=== PATIENT | male | born 1995 | race Caucasian/White ===

== ENCOUNTER 2021-08-13 22:13 | Emergency (ER) | payer OTHER, SELFPAY ==
[2021-08-13 22:14] VITALS: BP 164/101; PULSE 85; RESP 16; O2SAT 99; BMI 24.4
--- NOTE | 2021-08-13 22:28 | W.ED.PSYCHS ---
HPI - Psych General: Chief Complaint: Psychiatric Symptoms Stated Complaint: MHE Time Seen by Provider: 08/13/21 22:13 Source: patient and EMS Mode of arrival: EMS Limitations: no limitations History of Present Illness: HPI Narrative: 26-year-old male who is here by EMS family called EMS as he is becoming delusional. Patient here is very paranoid and delusional he is telling me that he is lying tricks how to make tons of money and can hear speech about invest he states that he hears voices when he walks his sock tank he notices all the secrets to make tons of money he is very anxious and has very loose associations here. He states he does use marijuana no other drug use Associated symptoms: Reports auditory hallucinations and delusions Review of Systems Const: Denies: fever(s), chills, body aches or change in appetite Eyes: Denies: blurry vision or eye discomfort ENMT: Denies: throat pain or dental pain Card: Denies: chest pain Resp: Denies: dyspnea GI: Denies: abdominal pain, nausea, vomiting or diarrhea : Denies: dysuria Musc: Denies: neck pain or back pain Skin/Breast: Denies: rash Neuro: Denies: headache(s) Psych: Reports: paranoia and auditory hallucinations Ilya/Lymph: Denies: easy bruising All/Imm: Denies: urticaria Physical Exam Const: COMMON NORMALS: no acute distress, patient oriented x3 and healthy appearing HENMT: COMMON NORMALS: normocephalic and atraumatic HEAD & SCALP: normocephalic and atraumatic Eye: COMMON NORMALS: Equal, round and reactive pupils present and EOMs intact bilaterally PUPIL: Yes Equal, round and reactive pupils present Neck/C-Spine: COMMON NORMALS: full ROM and supple Chest: COMMONS NORMALS: normal inspection of the chest and normal palpation of entire chest wall Resp: COMMON NORMALS: normal respiratory effort, No retractions, No use of accessory muscles and clear to auscultation bilaterally AUSCULTATION: clear to auscultation bilaterally Cardio: COMMON NORMALS: regular rate, regular rhythm and No murmurs present (Cardio) RATE: regular rate RHYTHM: regular rhythm GI: COMMON NORMALS: Normal to inspection, nondistended, normoactive bowel sounds present, Soft to palpation, non-tender and no masses PALPATION: Yes Soft to palpation Extremity: COMMON NORMALS: normal to inspection and full ROM Neuro: COMMON NORMALS: patient oriented x3, moves all extremities and no focal motor deficits Psych: COMMON NORMALS: mental status grossly normal and cooperative THOUGHT PROCESS: Flight of ideas present and Loose association thought process present THOUGHT CONTENT: Yes delusions and Yes Hallucination(s) present Skin: COMMON NORMALS: no rashes or lesions noted and no wounds GENERAL SKIN EXAM: no rashes or lesions noted Course Vital Signs: Vital signs: Vital Signs Pulse Rate 85 08/13/21 22:14 Respiratory Rate 16 08/13/21 22:14 Blood Pressure 120/69 08/14/21 03:26 Pulse Oximetry 99 08/13/21 22:14 MDM - Psych MDM Narrative: Medical decision making narrative: Patient presents here with acute psychosis possible new onset schizophrenia no drug abuse besides marijuana patient is medically cleared patient placed on a 96-hour hold and excepted to [place] and will transfer there. Lab Data: Labs: Lab Results 08/13/21 08/13/21 08/13/21 22:34 22:34 22:41 WBC 12.0 10^3/uL H 10 ^3/uL (4.0-10.0) RBC 5.70 10^6/uL H 10 ^6/uL (4.1-5.3) Hgb 17.3 g/dL H g/dL (11.7-16.6) Hct 50.9 % % (42.0-52.0) MCV 89.3 fl fl (80-94) MCH 30.4 pg pg (28.0-34.0) MCHC 34.0 g/dL g/dL (30.0-36.0) RDW 12.1 % % (12.1-15.1) Plt Count 317 10^3/cmm 10^3 /cmm (130-400) MPV 9.4 fL fL (7.4-10.4) Neut % (Auto) 63.3 % % Lymph % (Auto) 28.8 % % [place] % (Auto) 6.4 % % Eos % (Auto) 0.8 % % Baso % (Auto) 0.4 % % Neut # (Auto) 7.57 10^3/uL 10^3 /uL (1.8-7.7) Lymph # (Auto) 3.4 10^3/uL 10^3/ uL (0.8-4.8) [place] # (Auto) 0.8 10^3/uL 10^3/ uL (0.2-0.9) Eos # (Auto) 0.1 10^3/uL 10^3/ uL (0.0-0.8) Baso # (Auto) 0.1 10^3/uL 10^3/ uL (0.0-0.1) Nucleated RBC % (a uto) 0 % % Nucleated RBCs # 0.0 /100WBC /100W BC Sodium Potassium Chloride Carbon Dioxide Anion Gap BUN Creatinine GFR Calculation Glucose Calculated Osmolal ity Calcium Total Bilirubin AST ALT Alkaline Phosphata se Total Protein Albumin Globulin Urine Color Yellow (Yellow) Urine Appearance Clear (CLEAR) Urine pH 6.5 (5-7) Ur Specific Gravit y 1.010 (1.005-1.030) Urine Protein Neg (Negative) Urine Glucose (UA) Norm (Normal) Urine Ketones Negative (Negative) Urine Blood Neg (Negative) Urine Nitrate Negative (Negative) Urine Bilirubin Neg (Negative) Urine Urobilinogen Norm mg/dL mg/dL (Negative) Ur Leukocyte Lyla ase Negative (Negative) Salicylates Urine Opiates Scre en Negative ng/mL ng /mL (Negative) Acetaminophen Ur Barbiturates Sc reen Negative ng/mL ng /mL (Negative) Ur Phencyclidine S crn Negative ng/mL ng /mL (Negative) Ur Amphetamines Sc reen Negative ng/mL ng /mL (Negative) U Benzodiazepines Scrn Negative ng/mL ng /mL (Negative) Urine Cocaine Scre en Negative ng/mL ng /mL (Negative) U Marijuana (THC) Screen Positive ng/mL H ng/mL (Negative) Ethyl Alcohol SARS-CoV-2 Ag (Rap id) 08/13/21 08/14/21 22:41 02:13 WBC RBC Hgb Hct MCV MCH MCHC RDW Plt Count MPV Neut % (Auto) Lymph % (Auto) [place] % (Auto) Eos % (Auto) Baso % (Auto) Neut # (Auto) Lymph # (Auto) [place] # (Auto) Eos # (Auto) Baso # (Auto) Nucleated RBC % (a uto) Nucleated RBCs # Sodium 140 mmol/L mmol/L (136-145) Potassium 4.2 mmol/L mmol/L (3.5-5.1) Chloride 100 mmol/L mmol/L (98-107) Carbon Dioxide 28 mmol/L mmol/L (22-29) Anion Gap 16.2 (5-19) BUN 9 mg/dL mg/dL (6-20) Creatinine 0.7 mg/dL mg/dL (0.7-1.2) GFR Calculation 134.3 mL/min H mL /min (90-130) Glucose 104 mg/dL mg/dL (65-115) Calculated Osmolal ity 289 mOsm/kg mOsm/ kg (285-295) Calcium 9.7 mg/dL mg/dL (8.5-10.5) Total Bilirubin 0.4 mg/dL mg/dL (0.15-1.2) AST 15 U/L U/L (0-40) ALT 15 U/L U/L (0-41) Alkaline Phosphata se 60 IU/L IU/L (40-130) Total Protein 8.2 g/dL g/dL (6.6-8.7) Albumin 4.8 g/dL g/dL (3.5-5.2) Globulin 3.4 g/dL g/dL (1.3-4.6) Urine Color Urine Appearance Urine pH Ur Specific Gravit y Urine Protein Urine Glucose (UA) Urine Ketones Urine Blood Urine Nitrate Urine Bilirubin Urine Urobilinogen Ur Leukocyte Lyla ase Salicylates < 0.3 mg/dL L mg/ dL (3-10) Urine Opiates Scre en Acetaminophen < 5.0 ug/mL L ug/ mL (10-30) Ur Barbiturates Sc reen Ur Phencyclidine S crn Ur Amphetamines Sc reen U Benzodiazepines Scrn Urine Cocaine Scre en U Marijuana (THC) Screen Ethyl Alcohol < 10 mg/dL mg/dL (0-10) SARS-CoV-2 Ag (Rap id) Negative (Negative) Coding Level of Care Code ED Senior Market Research Analyst for Chg Fwd Exam Comprehensive
[2021-08-13 22:55] LABS: Basophils # 0.1 10^3/uL (0.0-0.1); Basophils % 0.4 %; Eosinophils # 0.1 10^3/uL (0.0-0.8); Eosinophils % 0.8 %; Hematocrit 50.9 % (42.0-52.0); Hemoglobin 17.3 g/dL (11.7-16.6); Lymphocytes # 3.4 10^3/uL (0.8-4.8); Lymphocytes % 28.8 %; Mean Corpuscular Hemoglobin 30.4 pg (28.0-34.0); Mean Corpuscular Volume 89.3 fl (80-94); Mean Platelet Volume 9.4 fL (7.4-10.4); Monocytes # 0.8 10^3/uL (0.2-0.9); Monocytes % 6.4 %; Neutrophils # 7.57 10^3/uL (1.8-7.7); Neutrophils % 63.3 %; Nucleated Red Blood Cells % 0 %; Platelet Count 317 10^3/cmm (130-400); Red Cell Distribution Width 12.1 % (12.1-15.1)
[2021-08-13 22:59] LABS: Amphetamines Screen Urine Negative (Negative); Barbiturates Screen Urine Negative (Negative); Benzodiazepines Screen Urine Negative (Negative); Cocaine Screen Urine Negative (Negative); Opiate Screen Urine Negative (Negative); PCP Screen Urine Negative (Negative); THC Screen Urine Positive (Negative)
[2021-08-13 23:21] LABS: Alanine Aminotransferase 15 U/L (0-41); Albumin Level 4.8 g/dL (3.5-5.2); Alkaline Phosphatase 60 IU/L (40-130); Anion Gap 16.2 (5-19); Aspartate Amino Transferase 15 U/L (0-40); Blood Urea Nitrogen 9 mg/dL (6-20); Calcium 9.7 mg/dL (8.5-10.5); Carbon Dioxide 28 mmol/L (22-29); Chloride 100 mmol/L (98-107); Globulin 3.4 g/dL (1.3-4.6); Glomerular Filtration Rate 134.3 mL/min (90-130); Glucose 104 mg/dL (65-115); Osmolality Calculated 289 mOsm/kg (285-295); Potassium 4.2 mmol/L (3.5-5.1); Sodium 140 mmol/L (136-145); Total Bilirubin 0.4 mg/dL (0.15-1.2); Total Protein 8.2 g/dL (6.6-8.7)
[2021-08-13 23:31] LABS: Acetaminophen < 5.0 ug/mL (10-30); Alcohol Level < 10 mg/dL (0-10); Salicylate < 0.3 mg/dL (3-10)
--- NOTE | 2021-08-13 23:48 | PC.NURSE ---
this nurse called pt mother to get background on pt. mother states he went to her house after his fiance radha told her he was acting strangely for a little over a week.
[2021-08-14 02:17] LABS: Add Urine Microscopic? NO; Charge for UA Resulting for Rev
[2021-08-14 02:18] LABS: Bilirubin Urine Neg (Negative); Blood Urine Neg (Negative); Glucose Urine UA Norm (Normal); Ketones Urine Negative (Negative); Leukocyte Esterase Urine Negative (Negative); Nitrate Urine Negative (Negative); Protein Urine Neg (Negative); Urine Appearance Clear (CLEAR); Urine Color Yellow (Yellow); Urobilinogen Urine Norm (Negative); pH Urine 6.5 (5-7)
[2021-08-14 02:34] LABS: SARS Covid-2 Antigen Negative (Negative)
[2021-08-14 03:26] VITALS: BP 120/69
--- NOTE | 2021-08-14 07:24 | PC.NURSE ---
Recieved report from RN, rounded on pt, pt appears to be resting quietly, was not disturbed. Per night RN report has been called to accepting facility and pt transport arranged
[2021-08-14 07:53] VITALS: BP 133/76; PULSE 94; RESP 16; O2SAT 97
== END 2021-08-14 07:57 ==
PROVIDERS: Emergency Provider Emergency Medicine
DX: F22 Delusional disorders (principal); Z20.822 Contact with and (suspected) exposure to COVID-19
CPT/HCPCS: 36415; 80053; 80306; 80307; 81003; 85025; 87426; 99285; 99291

== ENCOUNTER 2021-09-21 13:16 | Inpatient (IN) | payer OTHER, SELFPAY ==
[2021-09-21 13:23] VITALS: BP 143/106; PULSE 101; RESP 18; TEMP 36.6; O2SAT 97; BMI 23.1
--- NOTE | 2021-09-21 13:23 | PC.NURSE ---
pt oriented to ED environment upon arrival to ED. Pt placed in blue paper scrubs and pt belongings removed. Pt calm, cooperative with staff. adult parole officer at bedside
--- NOTE | 2021-09-21 13:39 | ED.C_ITS ---
HPI - Psych General: Chief Complaint: Psychiatric Symptoms Stated Complaint: MHE Time Seen by Provider: 09/21/21 13:33 History of Present Illness: HPI Narrative: 26-year-old male presents emergency room for mental health evaluation only custody of the [place] [employer]. He was released on arrival he will behavioral health went out to make a home visit when they got there the mother did report he is agitated he evidently had a weapon eventually the mother was able to talk him out of using a weapon and putting it down. Police at the bedside tell me that they think he pointed some did not know for sure. Patient denies any suicidal or homicidal intent he does make a vague comment about falling asleep and taking quarter nap and not waking up. He also has other tangential thinking but he does not make any overt extra expressions of suicidal or homicidal thoughts. He has previously been 96 in the past. occupational health and safety officer who came into the room states they have interacted with him multiple times in the past. Patient does make some vague illusions to auditory hallucination of the difficulty getting to confirm it. He does states he hears singing in his head and voices at times but declines to say what they are saying he denies any visual hallucinations. Onset (ago): unknown Duration: intermittent History of same: Yes Relieving factors: none Exacerbating factors: none Associated psychiatric symptoms: depression Associated symptoms: Reports auditory hallucinations, delusions and depression; Deny visual hallucinations, homicidal ideation or suicidal ideation Review of Systems Const: Denies: fever(s), chills, body aches, change in appetite, fatigue or malaise ENMT: Denies: throat pain, ear or mastoid pain, nasal discharge or nasal congestion Card: Denies: chest pain, edema, dyspnea on exertion or orthopnea Resp: Denies: dyspnea, productive cough or non-productive cough GI: Denies: abdominal pain, nausea, vomiting, hematemesis, coffee ground emesis, diarrhea, constipation, bloating, hematochezia or melena : Denies: flank pain, dysuria, urinary frequency or urinary urgency Skin/Breast: Denies: rash or pruritus Psych: Reports: depression and auditory hallucinations; Denies: visual hallucinations, suicidal ideation or homicidal ideation Physical Exam Const: COMMON NORMALS: no acute distress GENERAL APPEARANCE: cooperative and comfortable ORIENTATION/CONSCIOUSNESS: Yes awake, Yes oriented to person, Yes oriented to place and Yes oriented to time HENMT: COMMON NORMALS: normocephalic, atraumatic and hearing grossly normal bilaterally HEAD & SCALP: normocephalic and atraumatic Neck/C-Spine: COMMON NORMALS: no JVD Resp: COMMON NORMALS: normal respiratory effort, No retractions, No use of accessory muscles and clear to auscultation bilaterally AUSCULTATION: clear to auscultation bilaterally Cardio: COMMON NORMALS: no JVD, regular rate, regular rhythm and No murmurs present (Cardio) RATE: regular rate RHYTHM: regular rhythm GI: COMMON NORMALS: Soft to palpation and No hepatosplenomegaly present AUSCULTATION: Yes normoactive bowel sounds PALPATION: Yes Soft to palpation, No Tenderness to palpation present (GI), No Guarding due to palpation present (GI) and Yes No hepatosplenomegaly present Extremity: COMMON NORMALS: normal to inspection, capillary refill normal, no clubbing, cyanosis or edema, no calf tenderness and no pedal edema Neuro: SENSORIUM/ORIENTATION: Yes oriented to person, Yes oriented to place and Yes oriented to time Psych: THOUGHT CONTENT: Yes delusions Skin: COMMON NORMALS: no rashes or lesions noted GENERAL SKIN EXAM: no rashes or lesions noted Course Vital Signs: Vital signs: Vital Signs Temperature 98.3 F 09/22/21 06:18 Pulse Rate 66 09/22/21 06:18 Respiratory Rate 18 09/22/21 06:18 Blood Pressure 133/84 09/22/21 06:18 Pulse Oximetry 98 09/22/21 06:18 MDM - Psych MDM Narrative: Medical decision making narrative: All discussed with Dr. Wiley. Patient's behavior is bizarre and he is having some auditory hallucinations. Is responsive bringing out a firearm with the mental health staff came to do a wellness check on him is certainly inappropriate and concerning. He did not actually brandished a firearm but that he reached for that and made a verbal threat with that is concerning. Based on the affidavits given the auditory hallucinations Dr. Wiley asked that we 96 hold the patient. We will admit him to psych and he will further evaluate there. Lab Data: Labs: Lab Results 09/21/21 09/21/21 09/21/21 13:40 13:40 13:40 WBC 10.3 10^3/uL H 10 ^3/uL (4.0-10.0) RBC 5.35 10^6/uL H 10 ^6/uL (4.1-5.3) Hgb 16.2 g/dL g/dL (11.7-16.6) Hct 48.1 % % (42.0-52.0) MCV 89.9 fl fl (80-94) MCH 30.3 pg pg (28.0-34.0) MCHC 33.7 g/dL g/dL (30.0-36.0) RDW 12.1 % % (12.1-15.1) Plt Count 254 10^3/cmm 10^3 /cmm (130-400) MPV 9.6 fL fL (7.4-10.4) Neut % (Auto) 75.2 % % Lymph % (Auto) 16.2 % % [place] % (Auto) 8.0 % % Eos % (Auto) 0.1 % % Baso % (Auto) 0.3 % % Neut # (Auto) 7.74 10^3/uL H 10 ^3/uL (1.8-7.7) Lymph # (Auto) 1.7 10^3/uL 10^3/ uL (0.8-4.8) [place] # (Auto) 0.8 10^3/uL 10^3/ uL (0.2-0.9) Eos # (Auto) 0.0 10^3/uL 10^3/ uL (0.0-0.8) Baso # (Auto) 0.0 10^3/uL 10^3/ uL (0.0-0.1) Nucleated RBC % (a uto) 0 % % Nucleated RBCs # 0.0 /100WBC /100W BC Sodium 134 mmol/L L mmol /L (136-145) Potassium 3.6 mmol/L mmol/L (3.5-5.1) Chloride 99 mmol/L mmol/L (98-107) Carbon Dioxide 21 mmol/L L mmol/ L (22-29) Anion Gap 17.6 (5-19) BUN 9 mg/dL mg/dL (6-20) Creatinine 0.6 mg/dL L mg/dL (0.7-1.2) GFR Calculation 160.4 mL/min H mL /min (90-130) Glucose 117 mg/dL H mg/dL (65-115) Calculated Osmolal ity 278 mOsm/kg L mOs m/kg (285-295) Calcium 9.0 mg/dL mg/dL (8.5-10.5) Total Bilirubin 0.6 mg/dL mg/dL (0.15-1.2) AST 15 U/L U/L (0-40) ALT 18 U/L U/L (0-41) Alkaline Phosphata se 53 IU/L IU/L (40-130) Total Protein 7.3 g/dL g/dL (6.6-8.7) Albumin 4.7 g/dL g/dL (3.5-5.2) Globulin 2.6 g/dL g/dL (1.3-4.6) Urine Color Yellow (Yellow) Urine Appearance Hazy A (CLEAR) Urine pH 5 (5-7) Ur Specific Gravit y 1.025 (1.005-1.030) Urine Protein Trace (Negative) Urine Glucose (UA) Trace H (Normal) Urine Ketones 1+ H (Negative) Urine Blood Neg (Negative) Urine Nitrate Negative (Negative) Urine Bilirubin 1+ H (Negative) Urine Urobilinogen 1 mg/dL H mg/dL (Negative) Ur Leukocyte Lyla ase Trace H (Negative) Urine RBC 0-4 /hpf H /hpf (0-2) Urine WBC 10-15 /hpf H /hpf (0-5) Ur Squamous Epith Cells 0-4 /hpf H /hpf (0-5) Ur Transition Epit h Cell 0-4 /hpf /hpf Calcium Oxalate Cr ystal 0-4 /hpf H /hpf Amorphous Sediment Not Reportable Urine Bacteria 1+ /hpf H /hpf (NONE) Urine Mucus 3+ /hpf /hpf Salicylates < 0.3 mg/dL L mg/ dL (3-10) Urine Opiates Scre en Acetaminophen < 5.0 ug/mL L ug/ mL (10-30) Ur Barbiturates Sc reen Ur Phencyclidine S crn Ur Amphetamines Sc reen U Benzodiazepines Scrn Urine Cocaine Scre en U Marijuana (THC) Screen 09/21/21 13:40 WBC RBC Hgb Hct MCV MCH MCHC RDW Plt Count MPV Neut % (Auto) Lymph % (Auto) [place] % (Auto) Eos % (Auto) Baso % (Auto) Neut # (Auto) Lymph # (Auto) [place] # (Auto) Eos # (Auto) Baso # (Auto) Nucleated RBC % (a uto) Nucleated RBCs # Sodium Potassium Chloride Carbon Dioxide Anion Gap BUN Creatinine GFR Calculation Glucose Calculated Osmolal ity Calcium Total Bilirubin AST ALT Alkaline Phosphata se Total Protein Albumin Globulin Urine Color Urine Appearance Urine pH Ur Specific Gravit y Urine Protein Urine Glucose (UA) Urine Ketones Urine Blood Urine Nitrate Urine Bilirubin Urine Urobilinogen Ur Leukocyte Lyla ase Urine RBC Urine WBC Ur Squamous Epith Cells Ur Transition Epit h Cell Calcium Oxalate Cr ystal Amorphous Sediment Urine Bacteria Urine Mucus Salicylates Urine Opiates Scre en Negative ng/mL ng /mL (Negative) Acetaminophen Ur Barbiturates Sc reen Negative ng/mL ng /mL (Negative) Ur Phencyclidine S crn Negative ng/mL ng /mL (Negative) Ur Amphetamines Sc reen Negative ng/mL ng /mL (Negative) U Benzodiazepines Scrn Negative ng/mL ng /mL (Negative) Urine Cocaine Scre en Negative ng/mL ng /mL (Negative) U Marijuana (THC) Screen Positive ng/mL H ng/mL (Negative) Discharge Plan Discharge Patient Disposition: Admitted As Inpatient Admit Provider: Meño Wiley Clinical Impression: Acute psychosis, Bipolar disorder Condition: Stable Coding Level of Care Code ED Corporate Development Associate for Ron Fwd Exam Comprehensive
--- NOTE | 2021-09-21 13:50 | ECG_ITS ---
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 Measurements Intervals [place] Rate: 86 P: 67 FL: 161 QRS: 62 QRSD: 96 T: 49 QT: 337 QTc: 405 Interpretive Statements SINUS RHYTHM WITH SINUS ARRHYTHMIA No previous ECG available for comparison Electronically Signed On 09-21-2021 20:47:52 GIZZARD PULLER by Akil Agarwal M.D. [id number]
[2021-09-21 13:57] LABS: Basophils % 0.3 %; Eosinophils % 0.1 %; Hematocrit 48.1 % (42.0-52.0); Hemoglobin 16.2 g/dL (11.7-16.6); Lymphocytes # 1.7 10^3/uL (0.8-4.8); Lymphocytes % 16.2 %; Mean Corpuscular HGB Conc 33.7 g/dL (30.0-36.0); Mean Corpuscular Hemoglobin 30.3 pg (28.0-34.0); Mean Corpuscular Volume 89.9 fl (80-94); Mean Platelet Volume 9.6 fL (7.4-10.4); Monocytes # 0.8 10^3/uL (0.2-0.9); Neutrophils # 7.74 10^3/uL (1.8-7.7); Neutrophils % 75.2 %; Nucleated Red Blood Cells % 0 %; Platelet Count 254 10^3/cmm (130-400); Red Blood Count 5.35 10^6/uL (4.1-5.3); Red Cell Distribution Width 12.1 % (12.1-15.1); White Blood Count 10.3 10^3/uL (4.0-10.0)
--- NOTE | 2021-09-21 14:13 | PC.PHAR ---
pt wouldnt wake up to verify meds-ext med history shows chlorhex 0.12% last filled 05/06/21 16d/s
[2021-09-21 14:17] LABS: Alanine Aminotransferase 18 U/L (0-41); Albumin Level 4.7 g/dL (3.5-5.2); Alkaline Phosphatase 53 IU/L (40-130); Anion Gap 17.6 (5-19); Aspartate Amino Transferase 15 U/L (0-40); Blood Urea Nitrogen 9 mg/dL (6-20); Carbon Dioxide 21 mmol/L (22-29); Chloride 99 mmol/L (98-107); Globulin 2.6 g/dL (1.3-4.6); Glomerular Filtration Rate 160.4 mL/min (90-130); Glucose 117 mg/dL (65-115); Osmolality Calculated 278 mOsm/kg (285-295); Potassium 3.6 mmol/L (3.5-5.1); Sodium 134 mmol/L (136-145); Total Bilirubin 0.6 mg/dL (0.15-1.2); Total Protein 7.3 g/dL (6.6-8.7)
[2021-09-21 14:19] LABS: Acetaminophen < 5.0 ug/mL (10-30); Salicylate < 0.3 mg/dL (3-10)
--- NOTE | 2021-09-21 14:47 | PC.NURSE ---
pt sleeping soundly. even and unlabored respirations. captain/airline pilot at bedside
[2021-09-21 15:24] LABS: Amphetamines Screen Urine Negative (Negative); Barbiturates Screen Urine Negative (Negative); Benzodiazepines Screen Urine Negative (Negative); Cocaine Screen Urine Negative (Negative); Opiate Screen Urine Negative (Negative); PCP Screen Urine Negative (Negative); THC Screen Urine Positive (Negative)
[2021-09-21 15:45] LABS: Urine Appearance Hazy (CLEAR); Urine Color Yellow (Yellow)
[2021-09-21 15:46] LABS: Add Urine Microscopic? YES; Bilirubin Urine 1+ (Negative); Blood Urine Neg (Negative); Glucose Urine UA Trace (Normal); Ketones Urine 1+ (Negative); Leukocyte Esterase Urine Trace (Negative); Nitrate Urine Negative (Negative); Protein Urine Trace (Negative); RBC Urine 0-4 /hpf (0-2); Specific Gravity, Urine 1.025 (1.005-1.030); Squamous Epithelial Cell Urine 0-4 /hpf (0-5); Transitional Epi Cells Urine 0-4 /hpf; Urobilinogen Urine 1 mg/dL (Negative); pH Urine 5 (5-7)
[2021-09-21 15:47] LABS: Add Urine Culture? Yes; Bacteria Urine 1+ /hpf; Calcium Oxalate Crystals Urine 0-4 /hpf; Mucus Urine 3+ /hpf
[2021-09-21] MEDS: LORazepam 2 mg Tablet PO (18:42)
[2021-09-21 20:00] VITALS: BP 137/80; PULSE 98; RESP 22; TEMP 37.1; O2SAT 99
[2021-09-21 21:36] VITALS: BP 131/86; PULSE 95; RESP 19; TEMP 36.9; O2SAT 99
[2021-09-21 22:00] VITALS: BP 131/86; PULSE 95; RESP 19; TEMP 36.9; O2SAT 99
[2021-09-22 06:18] VITALS: BP 133/84; PULSE 66; RESP 18; TEMP 36.8; O2SAT 98
--- NOTE | 2021-09-22 11:57 | W.PM.NPUH&PS ---
Providers/Chief Complaint Admitting Physician: Meño Wiley MD Chief Complaint: MHE HPI NPU History of Present Illness Rogelio Rodriguez is a 26 year old male who presented to the ED with the following report: Chief Complaint: Psychiatric Symptoms Stated Complaint: MHE Time Seen by Provider: 09/21/21 13:33 History of Present Illness: HPI Narrative: 26-year-old male presents emergency room for mental health evaluation only custody of the [employer]. He was released on arrival he will behavioral health went out to make a home visit when they got there the mother did report he is agitated he evidently had a weapon eventually the mother was able to talk him out of using a weapon and putting it down. Police at the bedside tell me that they think he pointed some did not know for sure. Patient denies any suicidal or homicidal intent he does make a vague comment about falling asleep and taking quarter nap and not waking up. He also has other tangential thinking but he does not make any overt extra expressions of suicidal or homicidal thoughts. He has previously been 96 in the past. special technical operations officer who came into the room states they have interacted with him multiple times in the past. Patient does make some vague illusions to auditory hallucination of the difficulty getting to confirm it. He does states he hears singing in his head and voices at times but declines to say what they are saying he denies any visual hallucinations. Onset (ago): unknown Duration: intermittent History of same: Yes Relieving factors: none Exacerbating factors: none Associated psychiatric symptoms: depression Associated symptoms: Reports auditory hallucinations, delusions and depression; Deny visual hallucinations, homicidal ideation or suicidal ideation. He was admitted to the neuropsychiatric unit for definitive treatment of those issues. He reports that this is his third psychiatric hospitalization, reporting that he has been admitted before at [facility] in [place]. He has outpatient services and when asked about medication, he reported that the only medication that he felt comfortable taking was marijuana. He reports he smokes at least a pack of cigarettes a day, often more, he reports he has alcohol every now and then, he reports he has marijuana daily but denied any other illicit drug use. 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 He reports he has never been to a rehab and never had a DUI. The remainder of the interview and even the parts identified thus far were very challenging to obtain. He was clearly thought disordered and every question had painstaking deliberation before an answer was given if an answer was ever given. Questions like did you graduate from high school took extensive time to come to a conclusion, and then when challenged about what was so difficult in answering the question, he would report that he wanted to step back and be thorough in his answer. He was clearly confused by basic questions, questions had to be repeated, and mostly had to be passed by due to the length of time with his pauses. He reports what is clear is that his problems began sometime ago, as he has had a job for some time, maybe four to six years, with a really good company and he is trying to get his job back from that company, but he went to the hospital with similar symptoms, they diagnosed him with mood disorder, he reports, and offered medication which he is not taking anymore, and then he went to the next hospital that said he had bipolar disorder, and he used the fact that the diagnoses from his different places were not exactly the same to say there was a discrepancy. I attempted to explain to him that there was no discrepancy, that the concerns that each place had were founded in the same area; area of mood disorder, thought disorder, psychosis, they are all the same, but he said that was my educated opinion. We discussed the risks, benefits, and alternatives of a trial of Abilify, and he understood and reported he would probably not take it. We discussed the fact that given his level of thought disorder, that it would be unlikely for it to just spontaneously resolve. He denies any history of suicide attempts, but at a certain level he was struggling to answer that question and seemed to answer, but it was unclear to some level. PSYCHIATRIC HISTORY: As above. SUBSTANCE ABUSE HISTORY: As above. FAMILY HISTORY: There are no mental health or addiction issues on either side of the family, and no suicide attempts or completions in the family reported. DEVELOPMENTAL HISTORY: He denies any issues with his mother?s or delivery of him. He met all developmental milestones on time. He denies any speech therapy, learning support, emotional support, or special education classes. PSYCHOSOCIAL HISTORY: He reports that his mother and father were together when he was born, and that there is an older sister that is a product of that union. It appears his mom may have had three other children, not clear that his dad had any other children. He reports that his childhood was okay, and denied emotional, physical, or sexual abuse. He reports he graduated from high school and had a little bit of college but could not explain what that meant. He endorses being heterosexual, could not give a time for how long the longest relationship was, reporting that it was off and on, and he could not give a time frame. He has never been , he has two biological children, but endorses that there is another child that he has custody of that is not his biological child, he has never been in the , and he was very disturbed by the question about his gnosticist and felt uncomfortable revealing that answer and seemed quite spooked that it was asked. 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 He endorses living in a house with his three children and a fianc? and her four children, but then in trying to identify that she lives there or does not live there, it took quite a bit of his time, and we never came to a conclusion as to who really lived there. He was unable to answer further questions regarding his health and legal history. Meds NPU Home Medications Medication Instructions Recorded Confirmed Last Taken Type Unable to Assess 09/21/21 09/21/21 Unknown History Allergies Allergy/AdvReac Type Severity Reaction Status Date / Time No Known Allergies Allergy Verified 08/13/21 23:37 Mental Status Exam MSE Comments: This is a well-nourished, well-developed, white male, in hospital scrubs, with adequate grooming, and eye contact. No abnormal movements except for mild psychomotor retardation. Semi-cooperative with exam in mild distress. Speech was limited and decreased rate and volume with significant pauses which seemed to represent thought blocking. Mood: He was unable to describe, ultimately, we went with ?I don?t know?; affect confused. Thought process, organized. Thought content: patient denied any suicidal or homicidal ideation, there were no delusions reported or noted, patient denied any auditory or visual hallucinations. Memory was unreliable. Insight and judgment are impaired, impulse control limited. Vitals/I&O/Wt Last Vital Signs Temp 98.3 F 09/22/21 06:18 Pulse 66 09/22/21 06:18 Resp 18 09/22/21 06:18 BP 133/84 09/22/21 06:18 Pulse Ox 98 09/22/21 06:18 Weight last 48 hrs Weight 81.647 kg Data NPU : 09/21/21 13:40 09/21/21 13:40 A&P Assessment and plan (1) Acute psychosis: Status: Acute (2) Bipolar disorder: Status: Acute Additional A&P Information This is a 26-year-old, white male, with significant thought disorder, now on his third hospitalization in a short period of time, slowing becoming dysfunctional due to his unwillingness to take medication and help stabilize in his bipolar disorder versus schizophrenia versus schizoaffective disorder, presenting currently resistant to medication. RECOMMENDATION AND PLAN: 1. Continue current medication. We will offer Abilify 10 mg every morning in hopes that he will give the medication a try. 2. Encourage individual, group, and milieu therapy. 3. Continue q-15 minute checks for safety. 4. Encourage sober living treatment after discharge, at the highest level of care, to which he is willing to commit. Attestations NPU Medical Necessity Statement*: Inpatient hospitalization is medically necessary and the clinically appropriate intervention, at this time. We will monitor medications and make changes as indicated. Patient will be in the hospital for over two midnights. Likely length of stay is three to five days. Coding Level of Care Code Acute Perinatal Coordinator for Ron Garcia Diagnoses Acute psychosis F23 Bipolar disorder F31.9
--- NOTE | 2021-09-22 13:19 | NPU.GN ---
[facility] Unit Group Topic: Monica Cantu General Mood of Group: Rogelio did not attend group this morning as he was sleeping.
[2021-09-22 14:00] VITALS: BP 128/83; PULSE 75; RESP 18; TEMP 36.4; O2SAT 98
[2021-09-22] MEDS: OLANZapine 5 mg ODT PO (19:23)
--- NOTE | 2021-09-22 19:24 | PC.NURSE ---
Pt at nurse's station agitated and confused. Pt thought process disorganized and pt increasingly anxious. Pt agreed to take medication. Zydis 5mg PO administered without complication.
[2021-09-22 19:51] VITALS: BP 138/94; PULSE 95; RESP 16; O2SAT 98
--- NOTE | 2021-09-22 21:01 | PC.NURSE ---
pt was scheduled to start [id number] po this night, however pt refused said medication, stating i don't need it .
[2021-09-23 06:00] VITALS: RESP 18
--- NOTE | 2021-09-23 09:27 | PC.NURSE ---
meds Refused 10mg Abilify during morning medication. Will continue to monitor.
[2021-09-23] MEDS: nicotine 21 mg Patch 1 PATCH TRANSDERMA (10:08)
--- NOTE | 2021-09-23 11:27 | NPU.GN ---
[facility] Group Topic:Checkers General Mood of Group: Rogelio did participate and attend group today.
--- NOTE | 2021-09-23 12:53 | W.PM.NPUPNS ---
Subjective NPU Subjective: Interval history: Patient presents today continuing to be resistant to the idea of medication. Continuing to suggest that marijuana is the only medication he would take. Discussed that Dr. Howe will be here tomorrow and that he will perform his own independent conclusion about the case. He seemed even more paranoid today than yesterday. At 1 point I had opened the door to the patio to allow for privacy and he froze at the door looking panicked and suggesting that we prop the door open appearing to be fearful that he would be trapped. He did the same thing after recommending that we go to his room and he allowed me to go to his room but he would not spread inside inside the door. Then he got down on the ground inside the door with his head in his face saying that Dr. Matt would be able to see all the evidence that there is nothing wrong with him. Mental Status Exam MSE Comments: This is a well-nourished, well-developed, white male, in hospital scrubs, with adequate grooming, and eye contact. No abnormal movements except for mild psychomotor retardation. Semi-cooperative with exam in mild to moderate distress. Speech was limited and decreased rate and volume with significant pauses which seemed to represent thought blocking. Mood: I am fine,; affect confused. Thought process,disorganized. Thought content: patient denied any suicidal or homicidal ideation, there were no delusions reported but clear paranoia was seen, patient denied any auditory or visual hallucinations. Attention and concentration were limited and memory was unreliable but none were formally tested. Insight and judgment are impaired, impulse control limited. Vitals/I&O/Wt Last Vital Signs Temp 97.6 F 09/22/21 14:00 Pulse 95 09/22/21 19:51 Resp 16 09/22/21 19:51 BP 138/94 09/22/21 19:51 Pulse Ox 98 09/22/21 19:51 Data NPU : 09/21/21 13:40 09/21/21 13:40 A&P Additional A&P Information (1) Acute psychosis: (2) Bipolar disorder: Additional A&P Information This is a 26-year-old, white male, with significant thought disorder, now on his third hospitalization in a short period of time, slowing becoming dysfunctional due to his unwillingness to take medication and help stabilize in his bipolar disorder versus schizophrenia versus schizoaffective disorder, presenting currently resistant to medication. RECOMMENDATION AND PLAN: 1. Continue current medication. We will offer Abilify 10 mg every morning in hopes that he will give the medication a try. 2. Encourage individual, group, and milieu therapy. 3. Continue q-15 minute checks for safety. 4. Encourage sober living treatment after discharge, at the highest level of care, to which he is willing to commit. 5. Likely need a 21-day hold to be able to consider forced medication. 21-day paperwork filed in Dr. Shaka raman a decision to go forward with the hearing Attestations NPU Medical Necessity Statement*: Inpatient hospitalization is medically necessary and the clinically appropriate intervention, at this time. We will monitor medications and make changes as indicated. Likely length of stay is 7-10 days. Coding Level of Care Code Acute Oracle Hyperion Consultant for Ron Garcia
[2021-09-23 19:46] VITALS: BP 165/101; PULSE 86; RESP 16; O2SAT 98
[2021-09-23] MEDS: trazodone 50 mg Tablet PO (20:16)
[2021-09-23] MEDS: OLANZapine 5 mg ODT PO (20:16)
[2021-09-24 06:00] VITALS: BP 112/84; PULSE 68; RESP 15; O2SAT 97
[2021-09-24] MEDS: nicotine 21 mg Patch 1 PATCH TRANSDERMA (09:53)
[2021-09-24 13:39] VITALS: BP 151/95; PULSE 85; RESP 17; TEMP 36.9; O2SAT 97
--- NOTE | 2021-09-24 15:53 | P.NPUPN_ITS ---
Subjective NPU Subjective: Interval history: He has been hospitalized involuntarily on 3 occasions in the last few months. He thinks that it is his mother who is called. He says that she has poor judgment because of methamphetamine abuse. He does admit that he has some anxiety but he feels the THC takes care of it very well. He does not want to take medication. He said at the first hospita lization at [facility] he was diagnosed with rule out bipolar, rule out schizophrenia. They diagnosed him with mood disorder he thinks so that he would not lose his right to carry weapons. At the second hospitalization they said that he had bipolar disorder. He was prescribed Seroquel but did not take it. He said that if I prescribed a medication he would promise to take it. However when I said I doubted that and I would really like him to take an injection that would last a month he quickly decided that that was not something that he would do. He said that people were already on the way to come and get him because he assumed that I would release him this afternoon. He understands that there is a court hearing tomorrow. Mental Status Exam MSE Comments: This is a well-nourished, well-developed, white male, in hospital scrubs, with adequate grooming, and eye contact. No abnormal movements. Psychomotor activity is normal. cooperative with exam in no distress. Speech was of normal rate and volume no pausing. Mood: good; affect euthymic. Thought process,organized. Thought content: patient denied any suicidal or homicidal ideation, there were no delusions reported but clear paranoia was seen, he looked over his shoulder at the back window many times throughout the conversation. he would not say why he was doing that. Patient denied any auditory or visual hallucinations. Attention and concentration were limited and memory was unreliable but none were formally tested. Insight and judgment are impaired, impulse control limited. Cognition: Patient Appearance: Disheveled/Poor Hygiene Level of Consciousness: Awake and Alert Patient Cognition Impaired: No Ability to Follow Directions: Good Patient Orientation (long list): Person, Place and Time Comprehension Ability: Mild Impairment Hallucination Type: None Delusion Description: Paranoid Ideation and Persecutory Thought Process: Confused and Disorganized Affect: Affect Description: Appropriate Depressive Symptoms: Insomnia and Increased Anxiety Behavior: Patient Behavior: Appropriate Speech Pattern: Clear Vitals/I&O/Wt Last Vital Signs Temp 98.4 F 12/16/21 13:39 Pulse 85 09/24/21 13:39 Resp 17 09/24/21 13:39 BP 151/95 09/24/21 13:39 Pulse Ox 97 09/24/21 13:39 Data NPU : 09/21/21 13:40 09/21/21 13:40 A&P Assessment and plan (1) Acute psychosis: Status: Acute (2) Bipolar disorder: Status: Acute Additional A&P Information (1) Acute psychosis: (2) Bipolar disorder: Additional A&P Information This is a 26-year-old, white male, with significant thought disorder, now on his third hospitalization in a short period of time, slowing becoming dysfunctional due to his unwillingness to take medication and help stabilize in his bipolar disorder versus schizophrenia versus schizoaffective disorder, presenting currently resistant to medication. RECOMMENDATION AND PLAN: 1. Continue current medication. We are offering Invega 6 mg but he has not taken it thus far. 2. Encourage individual, group, and milieu therapy. 3. Continue q-15 minute checks for safety. 4. Encourage sober living treatment after discharge, at the highest level of care, to which he is willing to commit. 5. Likely need a 21-day hold to be able to consider forced medication. 21-day court hearing tomorrow. Attestations NPU Medical Necessity Statement*: Inpatient hospitalization is medically necessary and the clinically appropriate intervention at this time. We will initiate medications and make changes as indicated. Coding Level of Care Code Acute Bullet Swaging Machine Adjuster for Ron Garcia Diagnoses Acute psychosis F23 Bipolar disorder F31.9
[2021-09-24 20:27] VITALS: BP 152/84; PULSE 75; RESP 18; O2SAT 98
[2021-09-25 06:00] VITALS: RESP 16
[2021-09-25] MEDS: nicotine 21 mg Patch 1 PATCH TRANSDERMA (09:28)
--- NOTE | 2021-09-25 11:05 | P.NPUDS_ITS ---
Diagnoses at Discharge Discharge Diagnosis (1) Acute psychosis: Status: Acute (2) Bipolar disorder: Status: Acute Reason for Visit Reason for Visit: Brief History: History of Present Illness Rogelio Rodriguez is a 26 year old male who presented to the ED with the following report: Chief Complaint: Psychiatric Symptoms Stated Complaint: MHE Time Seen by Provider: 09/21/21 13:33 History of Present Illness: HPI Narrative: 26-year-old male presents emergency room for mental health evaluation only custody of the [place] [employer]. He was released on arrival he will behavioral health went out to make a home visit when they got there the mother did report he is agitated he evidently had a weapon eventually the mother was able to talk him out of using a weapon and putting it down. Police at the bedside tell me that they think he pointed some did not know for sure. Patient denies any suicidal or homicidal intent he does make a vague comment about falling asleep and taking quarter nap and not waking up. He also has other tangential thinking but he does not make any overt extra expressions of suicidal or homicidal thoughts. He has previous ly been 96 in the past. credit risk review officer who came into the room states they have interacted with him multiple times in the past. Patient does make some vague illusions to auditory hallucination of the difficulty getting to confirm it. He does states he hears singing in his head and voices at times but declines to say what they are saying he denies any visual hallucinations. Onset (ago): unknown Duration: intermittent History of same: Yes Relieving factors: none Exacerbating factors: none Associated psychiatric symptoms: depression Associated symptoms: Reports auditory hallucinations, delusions and depression; Deny visual hallucinations, homicidal ideation or suicidal ideation. He was admitted to the neuropsychiatric unit for definitive treatment of those issues. He reports that this is his third psychiatric hospitalization, reporting that he has been admitted before at [facility] in [place]. He has outpatient services and when asked about medication, he reported that the only medication that he felt comfortable taking was marijuana. He reports he smokes at least a pack of cigarettes a day, often more, he reports he has alcohol every now and then, he reports he has marijuana daily but denied any other illicit drug use. 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 He reports he has never been to a rehab and never had a DUI. The remainder of the interview and even the parts identified thus far were very challenging to obtain. He was clearly thought disordered and every question had painstaking deliberation before an answer was given if an answer was ever given. Questions like did you graduate from high school took extensive time to come to a conclusion, and then when challenged about what was so difficult in answering the question, he would report that he wanted to step back and be thorough in his answer. He was clearly confused by basic questions, questions had to be repeated, and mostly had to be passed by due to the length of time with his pauses. He reports what is clear is that his problems began sometime ago, as he has had a job for some time, maybe four to six years, with a really good company and he is trying to get his job back from that company, but he went to the hospital with similar symptoms, they diagnosed him with mood disorder, he reports, and offered medication which he is not taking anymore, and then he went to the next hospital that said he had bipolar disorder, and he used the fact that the diagnoses from his different places were not exactly the same to say there was a discrepancy. I attempted to explain to him that there was no discrepancy, that the concerns that each place had were founded in the same area; area of mood disorder, thought disorder, psychosis, they are all the same, but he said that was my educated opinion. We discussed the risks, benefits, and alternatives of a trial of Abilify, and he understood and reported he would probably not take it. We discussed the fact that given his level of thought disorder, that it would be unlikely for it to just spontaneously resolve. He denies any history of suicide attempts, but at a certain level he was struggling to answer that question and seemed to answer, but it was unclear to some level. PSYCHIATRIC HISTORY: As above. SUBSTANCE ABUSE HISTORY: As above. FAMILY HISTORY: There are no mental health or addiction issues on either side of the family, and no suicide attempts or completions in the family reported. DEVELOPMENTAL HISTORY: He denies any issues with his mother?s or delivery of him. He met all developmental milestones on time. He denies any speech therapy, learning support, emotional support, or special education classes. PSYCHOSOCIAL HISTORY: He reports that his mother and father were together when he was born, and that there is an older sister that is a product of that union. It appears his mom may have had three other children, not clear that his dad had any other children. He reports that his childhood was okay, and denied emotional, physical, or sexual abuse. He reports he graduated from high school and had a little bit of college but could not explain what that meant. He endorses being heterosexual, could not give a time for how long the longest relationship was, reporting that it was off and on, and he could not give a time frame. He has never been , he has two biological children, but endorses that there is another child that he has custody of that is not his biological child, he has never been in the , and he was very disturbed by the question about his synagogue and felt uncomfortable revealing that answer and seemed quite spooked that it was asked. 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 He endorses living in a house with his three children and a fianc? and her four children, but then in trying to identify that she lives there or does not live there, it took quite a bit of his time, and we never came to a conclusion as to who really lived there. He was unable to answer further questions regarding his health and legal history. Hospital Course Hospital Course He slowly acclimated to the individual, group and milieu therapies provided. His thoughts continue to be disorganized and he was paranoid. He refused medications during his stay. He did not show any evidence of being a danger to himself or others and we did not feel that we could request a 21-day commitment. He agreed to take Seroquel as an outpatient. He has been prescribed this previously but did not take it. He was able to contract for safety outside hospital prior to discharge. During the hospitalization, patient had routine laboratory studies which were within normal limits except for few outliers. Additionally there was a general medical evaluation which was also within normal limits and revealed no new acute processes. Discharge Summary: At the time of discharge, lethality was denied. psychosis was not resolving. Mood and anxiety were well managed. Patient endorsed a plan to follow-up with the aftercare recommendations of the treatment team. Patient was evaluated and deemed to be absent credible lethality, and had achieved the maximum benefit from an inpatient hospitalization, so was discharged. Mental Status Exam MSE Comments: This is a well-nourished, well-developed, white male, in hospital scrubs, with adequate grooming, and eye contact. No abnormal movements. Psychomotor activity is normal. cooperative with exam in no distress. Speech was of normal rate and volume no pausing. Mood: good; affect euthymic. Thought process,organized. Thought content: patient denied any suicidal or homicidal ideation, there were no delusions reported but clear paranoia was seen, he looked over his shoulder at the back window many times throughout the conversation. he would not say why he was doing that. Patient denied any auditory or visual hallucinations. Attention and concentration were limited and memory was unreliable but none were formally tested. Insight and judgment are impaired, impulse control limited. Cognition: Patient Appearance: Disheveled/Poor Hygiene Level of Consciousness: Awake and Alert Patient Cognition Impaired: No Ability to Follow Directions: Good Patient Orientation (long list): Person, Place and Time Comprehension Ability: Mild Impairment Hallucination Type: None Delusion Description: Paranoid Ideation and Persecutory Thought Process: Confused and Disorganized Affect: Affect Description: Anxious Depressive Symptoms: Insomnia and Increased Anxiety Behavior: Patient Behavior: Appropriate Speech Pattern: Appropriate Discharge Data Vitals: Last Vital Signs Temp 98.4 F 09/24/21 13:39 Pulse 75 09/24/21 20:27 Resp 16 09/25/21 06:00 BP 152/84 09/24/21 20:27 Pulse Ox 98 09/24/21 20:27 Discharge Plan Discharge Patient Disposition: Home Condition: Stable Prescriptions: New quetiapine 100 mg Tablet 100 mg PO BEDTIME 30 Days Qty: 60 RF: 1 No Action No Known Home Medications RF: 0 Discharge Orders: Discharge Order (Routine); Ordered 09/25/21 Ordered By: Henry Matt Referrals: [facility] [Outside] Discharge Diet: Regular Discharge Activity: Resume usual activity Patient Instructions: Bipolar Disorder (DC), Psychotic Disorder (DC), Opioid Safety Discharge Attestations NPU Time Spent in Discharge Care*: less than 30 min Specific Discharge Activities: Specific discharge activities: educating patient, discussing with family independence case manager/social workers/dc planners, documenting/other paperwork and evaluating patient/reviewing data Coding Level of Care Code Acute Chg FW DC note Diagnoses Acute psychosis F23 Bipolar disorder F31.9
[2021-09-25 11:31] VITALS: RESP 16
== END 2021-09-25 11:32 | disposition home or self-care (01) | DRG 885 ==
LOC: ER 14:15 → NP 09-22 07:03
PROVIDERS: Admitting Provider Psychiatry & Neurology Psychiatry; Emergency Provider Family Medicine; Visit Provider Psychiatry & Neurology Psychiatry
DX: F23 Brief psychotic disorder (principal); F31.9 Bipolar disorder, unspecified; F12.90 Cannabis use, unspecified, uncomplicated; F17.210 Nicotine dependence, cigarettes, uncomplicated
CPT/HCPCS: 36415; 80053; 80306; 80307; 81001; 85025; 93005; 97150; 97165; 99285